=== PATIENT | female | born 1970 | race Caucasian/White ===

== ENCOUNTER 2017-05-17 16:11 | Outpatient (CLI) | payer BC, OTHER ==
--- NOTE | 2017-05-18 17:02 | Mammography Report ---
DIGITAL SCREENING MAMMOGRAM: 05/17/2017 CLINICAL INDICATION: A 47-year-old, for screening. COMPARISON: 03/2012. TECHNIQUE: Routine CC and MLO projections were obtained of the breasts. FINDINGS: The breasts demonstrate heterogeneously dense fibroglandular parenchyma bilaterally. Coarse and punctate, typically benign calcifications are present. No suspicious masses, clustered microcalcifications, or regions of architectural distortion are identified. IMPRESSION: BENIGN FINDINGS. RECOMMENDATION: ROUTINE ANNUAL SCREENING UNLESS OTHERWISE CLINICALLY INDICATED. BIRADS CATEGORY 2-BENIGN FINDINGS. STANDARD QUALIFYING STATEMENTS: 1. This examination was reviewed with the aid of Computer-Aided Detection (CAD). 2. A negative or benign imaging report should not delay biopsy if clinically suspicious findings are present. Consider surgical consultation if warranted. More than 5% of cancers are not identified by imaging. 3. Dense breasts may obscure an underlying neoplasm. TD: 05/18/2017 17:00
== END 2017-05-17 16:12 | disposition home or self-care (01) ==
LOC: DI 16:11
PROVIDERS: ATTEND Family Medicine
DX: Z12.31 Encounter for screening mammogram for malignant neoplasm of breast (principal)
CPT/HCPCS: 77067

== ENCOUNTER 2018-03-02 12:01 | Emergency (ER) | payer BC ==
[2018-03-02 12:07] VITALS: BP 132/73
--- NOTE | 2018-03-02 12:26 | ED Physician Documentation ---
History of Present Illness - Stated complaint Stated Complaint: COUGH/SINUS PX/EAR PX - Chief complaint Chief Complaint: Heent - Additonal information Additional information: hx from pt 47 f to ED with cough congestion R ear pain Review of Systems Constitutional: denies: Fever Ears: reports: Ear pain Nose: reports: Congestion Respiratory: reports: Cough GI: denies: Vomiting, Diarrhea : reports: Hysterectomy PD PAST MEDICAL HISTORY - Past Medical History GUM SPRAYER: Endometriosis - Past Surgical History Past Surgical History: Yes /GUM SPRAYER: Hysterectomy, Oophrectomy - Present Medications Home Medications: Ambulatory Orders Medication Instructions Recorded Confirmed Amoxicillin 500 mg PO Q8HR #30 capsule 03/02/18 - Allergies Allergies/Adverse Reactions: Allergies Allergy/AdvReac Type Severity Reaction Status Date / Time ondansetron HCl * Allergy Unknown Verified 03/02/18 12:07 [From Zofran (as hydrochloride)] - Social History Does the pt smoke?: Yes Smoking Status: Current every day smoker Does the pt drink ETOH?: No Does the pt have substance abuse?: No - Immunizations Immunizations are current?: Yes PD ED PE NORMAL - Vitals Vital signs reviewed: Yes - HEENT HEENT: Atraumatic, Moist mucous membranes, Pharynx benign. No: Ears normal (L TM red dull slight bulge) - Neck Neck: Supple, no meningeal sign - Cardiac Cardiac: RRR - Respiratory Respiratory: No respiratory distress, Clear bilaterally - Derm Derm: Normal color Results - Vitals Vitals: Vital Signs - 24 hr 03/02/18 12:05 Temperature 36.0 C L Heart Rate 84 Respiratory 16 Rate Blood Pressure 132/73 H O2 Saturation 96 Oxygen O2 Source Room air Departure - Departure Disposition: 01 Home, Self Care Clinical Impression: URI (upper respiratory infection) Qualifiers: URI type: unspecified viral URI Qualified Code(s): J06.9 - Acute upper respiratory infection, unspecified Otitis media Qualifiers: Otitis media type: suppurative Chronicity: acute Laterality: left Recurrence: not specified as recurrent Spontaneous tympanic membrane rupture: without spontaneous rupture Qualified Code(s): H66.002 - Acute suppurative otitis media without spontaneous rupture of ear drum, left ear Condition: Good Instructions: ED Otitis Media Acute Adult Prescriptions: Amoxicillin 500 mg PO Q8HR #30 capsule
== END 2018-03-02 12:32 | disposition home or self-care (01) ==
LOC: ED 12:01
DX: J06.9 Acute upper respiratory infection, unspecified (principal); H66.002 Acute suppurative otitis media without spontaneous rupture of ear drum, left ear; F17.200 Nicotine dependence, unspecified, uncomplicated
CPT/HCPCS: 99283

== ENCOUNTER 2018-07-14 08:00 | Outpatient (CLI) | payer BC ==
[2018-07-14 13:00] LABS: BASOPHILS % (AUTO) 0.7 %; EOSINOPHILS # (AUTO) 0.8 10^3/uL (0.0-0.7); EOSINOPHILS % (AUTO) 11.8 %; HGB - HEMOGLOBIN 13.3 g/dL (12.0-16.0); LYMPHOCYTES # (AUTO) 1.4 10^3/uL (1.5-3.5); LYMPHOCYTES % (AUTO) 21.4 %; MEAN CORPUSCULAR HEMOGLOBIN 28.6 pg (27.0-31.0); MEAN CORPUSCULAR HGB CONC 33.8 g/dL (32.0-36.0); MEAN CORPUSCULAR VOLUME 84.6 fL (81.0-99.0); MEAN PLATELET VOLUME 7.4 fL (7.9-10.8); MONOCYTES # (AUTO) 0.4 10^3/uL (0.0-1.0); MONOCYTES % (AUTO) 6.5 %; NEUTROPHILS # (AUTO) 3.9 10^3/uL (1.5-6.6); NEUTROPHILS % (AUTO) 59.6 %; PLT - PLATELET COUNT 262 10^3/uL (130-450); RED BLOOD COUNT 4.65 10^6/uL (4.20-5.40); RED CELL DISTRIBUTION WIDTH 13.8 % (12.0-15.0); WHITE BLOOD COUNT 6.5 x10^3/uL (4.8-10.8)
[2018-07-14 13:09] LABS: HB2 TOTAL 14.8 g/dL; HEMOGLOBIN A1C 0.61 g/dL; HEMOGLOBIN A1C % 5.9 % (4.6-6.2)
[2018-07-14 13:19] LABS: ALBUMIN 3.9 g/dL (3.2-5.5); ALBUMIN/GLOBULIN RATIO 1.1 (1.0-2.2); ALKALINE PHOSPHATASE 85 IU/L (42-121); ALT ALANINE AMINOTRANSFERASE 22 IU/L (10-60); AST ASPARTATE AMINOTRANSFERASE 23 IU/L (10-42); BILIRUBIN,TOTAL 0.5 mg/dL (0.2-1.0); BUN - BLOOD UREA NITROGEN 19 mg/dL (6-20); CALCIUM 9.5 mg/dL (8.5-10.3); CARBON DIOXIDE - CO2 26 mmol/L (21-32); CHLORIDE 104 mmol/L (101-111); CHOL/HDL RATIO 4.4 (<4.4); CHOLESTEROL 175 mg/dL; CREATININE 0.8 mg/dL (0.4-1.0); GFR - MDRD 77 (>89); GLUCOSE 121 mg/dL (70-100); HDL CHOLESTEROL 40 mg/dL; LDL CHOLESTEROL,CALCULATED 118 mg/dL; SODIUM 139 mmol/L (135-145); TOTAL PROTEIN 7.3 g/dL (6.7-8.2); VLDL CHOLESTEROL 17 mg/dL
== END 2018-07-14 23:59 | disposition home or self-care (01) ==
LOC: LAB.WCP 08:00
PROVIDERS: ATTEND Physician Assistant
DX: Z00.00 Encounter for general adult medical examination without abnormal findings (principal)
CPT/HCPCS: 36415; 80053; 80061; 83036; 83721; 84443; 85025

== ENCOUNTER 2018-08-14 08:00 | Outpatient (CLI) | payer BC ==
[2018-08-14 20:22] LABS: BILIRUBIN,URINE NEGATIVE (NEGATIVE); GLUCOSE, URINE (UA) NEGATIVE (NEGATIVE); KETONES,URINE (UA) TRACE mg/dL (NEGATIVE); LEUKOCYTE ESTERASE, URINE NEGATIVE (NEGATIVE); NITRITE,URINE NEGATIVE (NEGATIVE); OCCULT BLOOD,URINE NEGATIVE (NEGATIVE); PH,URINE 5.5 PH (5.0-7.5); PROTEIN,URINE TRACE mg/dL (NEGATIVE); UROBILINOGEN,URINE 0.2 (NORMAL) E.U./dL (NORMAL)
[2018-08-14 20:23] LABS: CLARITY,URINE CLEAR (CLEAR)
== END 2018-08-14 23:59 | disposition home or self-care (01) ==
LOC: LAB.R 08:00
PROVIDERS: ATTEND Physician Assistant
DX: N39.0 Urinary tract infection, site not specified (principal)
CPT/HCPCS: 81001; 81003; 87086

== ENCOUNTER 2018-10-24 13:56 | Outpatient (CLI) | payer BC ==
[2018-10-24 14:51] LABS: BASOPHILS % (AUTO) 0.5 %; EOSINOPHILS # (AUTO) 0.2 10^3/uL (0.0-0.7); EOSINOPHILS % (AUTO) 1.9 %; HGB - HEMOGLOBIN 12.4 g/dL (12.0-16.0); LYMPHOCYTES # (AUTO) 1.9 10^3/uL (1.5-3.5); LYMPHOCYTES % (AUTO) 24.8 %; MEAN CORPUSCULAR HEMOGLOBIN 29.5 pg (27.0-31.0); MEAN CORPUSCULAR HGB CONC 33.9 g/dL (32.0-36.0); MEAN CORPUSCULAR VOLUME 87.1 fL (81.0-99.0); MEAN PLATELET VOLUME 8.5 fL (7.9-10.8); MONOCYTES # (AUTO) 0.5 10^3/uL (0.0-1.0); MONOCYTES % (AUTO) 6.8 %; NEUTROPHILS # (AUTO) 5.1 10^3/uL (1.5-6.6); NEUTROPHILS % (AUTO) 65.6 %; PLT - PLATELET COUNT 248 10^3/uL (130-450); RED CELL DISTRIBUTION WIDTH 12.5 % (12.0-15.0); WHITE BLOOD COUNT 7.8 x10^3/uL (4.8-10.8)
[2018-10-24 15:07] LABS: ALBUMIN/GLOBULIN RATIO 1.3 (1.0-2.2); BILIRUBIN,TOTAL 0.4 mg/dL (0.2-1.0); CALCIUM 9.5 mg/dL (8.5-10.3); CREATININE 0.8 mg/dL (0.4-1.0); TOTAL PROTEIN 7.2 g/dL (6.7-8.2)
--- NOTE | 2018-10-24 15:49 | XRAY Report ---
Reason: ABDOMINAL PAIN IN FEMALE PATIENT Procedure Date: 10/24/2018 Accession Number: [id number] / [id number] Procedure: XR - Abdomen 2 View X-Ray CPT Code: 89741 FULL RESULT: EXAM: ABDOMEN RADIOGRAPHY. EXAM DATE: 10/24/2018 02:22 PM. CLINICAL HISTORY: Abdominal pain in female patient. COMPARISON: None. TECHNIQUE: 2 views. FINDINGS: Lung Bases: Unremarkable. Bowel Gas Pattern: Within normal limits. No dilated loops or abnormal fluid levels. Free Air: None. Other: Cholecystectomy clips are noted. IMPRESSION: Nonobstructive bowel gas pattern. RADIA
== END 2018-10-24 13:57 | disposition home or self-care (01) ==
LOC: DI 13:56
PROVIDERS: ATTEND Internal Medicine Gastroenterology
DX: R10.9 Unspecified abdominal pain (principal); R19.4 Change in bowel habit
CPT/HCPCS: 36415; 74019; 80053; 81599; 83690; 85025

== ENCOUNTER 2018-10-25 08:00 | Outpatient (CLI) | payer BC | END 2018-10-25 08:01 | disposition home or self-care (01) | LOC: LAB.R 08:00 | PROVIDERS: ATTEND Internal Medicine Gastroenterology | DX: R10.9 Unspecified abdominal pain (principal); R19.4 Change in bowel habit | CPT/HCPCS: 81599 ==

== ENCOUNTER 2019-08-07 08:00 | Outpatient (CLI) | payer OTHER, BC ==
[2019-08-07 13:28] LABS: ALBUMIN 3.8 g/dL (3.2-5.5); BILIRUBIN,TOTAL 0.6 mg/dL (0.2-1.0); CALCIUM 9.1 mg/dL (8.5-10.3); CREATININE 0.8 mg/dL (0.4-1.0); MAGNESIUM 2.1 mg/dL (1.7-2.8); TOTAL PROTEIN 7.5 g/dL (6.7-8.2)
[2019-08-07 13:41] LABS: BASOPHILS % (AUTO) 0.4 %; EOSINOPHILS # (AUTO) 0.2 10^3/uL (0.0-0.7); EOSINOPHILS % (AUTO) 2.1 %; HGB - HEMOGLOBIN 12.2 g/dL (12.0-16.0); LYMPHOCYTES # (AUTO) 1.4 10^3/uL (1.5-3.5); LYMPHOCYTES % (AUTO) 19.7 %; MEAN CORPUSCULAR HEMOGLOBIN 27.5 pg (27.0-31.0); MEAN CORPUSCULAR VOLUME 85.8 fL (81.0-99.0); MEAN PLATELET VOLUME 9.1 fL (7.9-10.8); MONOCYTES # (AUTO) 0.5 10^3/uL (0.0-1.0); MONOCYTES % (AUTO) 7.5 %; NEUTROPHILS # (AUTO) 4.9 10^3/uL (1.5-6.6); PLT - PLATELET COUNT 277 10^3/uL (130-450); RED BLOOD COUNT 4.44 10^6/uL (4.20-5.40); RED CELL DISTRIBUTION WIDTH 13.2 % (12.0-15.0); WHITE BLOOD COUNT 7.1 x10^3/uL (4.8-10.8)
[2019-08-07 13:48] LABS: HB2 TOTAL 12.3 g/dL; HEMOGLOBIN A1C 0.49 g/dL; HEMOGLOBIN A1C % 5.8 % (4.6-6.2)
== END 2019-08-07 23:59 | disposition home or self-care (01) ==
LOC: LAB.WCP 08:00
PROVIDERS: ATTEND Physician Assistant
DX: R00.2 Palpitations (principal)
CPT/HCPCS: 36415; 80053; 83036; 83735; 84443; 85025

== ENCOUNTER 2019-08-30 07:43 | Outpatient (CLI) | payer OTHER, BC | END 2019-08-30 07:44 | disposition home or self-care (01) | LOC: DI 07:43 | PROVIDERS: ATTEND Physician Assistant | DX: R00.2 Palpitations (principal); I51.7 Cardiomegaly | CPT/HCPCS: 93306 ==

== ENCOUNTER 2019-12-05 16:43 | Outpatient (CLI) | payer OTHER, BC ==
--- NOTE | 2019-12-06 17:30 | XRAY Report ---
PROCEDURE: Knee 2 View RT INDICATIONS: KNEE PAIN, RIGHT TECHNIQUE: 2 views of the right knee(s) were acquired. COMPARISON: None. FINDINGS: Bones: No fractures or dislocations. No suspicious bony lesions. Soft tissues: No joint effusion. Calcific tendinitis at the lateral collateral ligament versus small osteophyte. IMPRESSION: Calcific tendinitis versus small osteophyte as above. No visualized fractures. Reviewed by: Sandra Campos MD on 12/06/2019 5:29 PM PDT Approved by: Sandra Campos MD on 12/06/2019 5:29 PM PDT Station ID: [id number]
== END 2019-12-05 16:44 | disposition home or self-care (01) ==
LOC: DI 16:43
PROVIDERS: ATTEND Physician Assistant
DX: R93.6 Abnormal findings on diagnostic imaging of limbs (principal)

== ENCOUNTER 2019-12-11 08:38 | Outpatient (CLI) | payer OTHER, BC ==
[2019-12-11 09:51] VITALS: BP 132/62
--- NOTE | 2019-12-11 09:51 | SLEEP CARE CONSULTATION ---
Information from patient questionnaire entered by Perlita Robertson. I have reviewed and concur with the information entered by Perlita Robertson. This document represents the service I personally performed and the decisions made by me, Karina Joy ARNP. History of Present Illness Service Date and Time: 12/11/2019 0838 Reason for Visit: New patient Chief Complaint: reports: Unrefreshed sleep, Observed pauses in breathing, Other (heart issues) Date of Onset: unknown Usual bedtime: 6961-4314 Time it takes to fall asleep: 10-15 minutes Snores at night: Yes Observed to quit breathing while asleep: Yes ( has seen) Sleeps alone due to snoring: No Number of times waking at night: 2-3 Reasons for waking at night: reports: Bathroom. denies: Choking, Snoring, Gasping for air Toss, Turn, or Twitch while sleeping: No Recalls having dreams: Yes Usually gets out of bed at: [id number] Feels refreshed in the morning: No Morning headache: Yes (daily, last couple hours, takes ibuprofen for ARREDONDO and other pains) Sleepy or fatigued during the day: Yes Ever fallen asleep while driving: No Takes day naps: Yes (3 times a week, sets alarm for 20-30 mins) Dreams during day naps: No Prior sleep studies: No Additional HPI information: I had the pleasure of seeing RAMEZ HODGE today regarding the possibility of her having a sleep disorder. Her current complaints are unrefreshed sleep, obser mone pauses in breathing during sleep and heart issues. She has been working with her precast molder because she has "weakened heart" luciano and recently found a new heart arrhythmia. They did an overnight oximetry and found some desaturations of her oxygen levels. She was then referred here for testing through her PCP. She does snore with some observed pauses in breathing by her . She has been trying to lose weight and increasing her exercising to 20 minutes daily. - Parasomnia Symptoms Ever been unable to move upon waking from sleep: No Walks in sleep: No Talks in sleep: No Ever acted out dreams in sleep: No Ever felt weak in the knees when startled or emotional: No Bothered by creepy, crawly, restless sensations in legs: Yes (nightly, weighted blanket helps) Problems with memory or concentration: No Subjective Initial [place] Sleepiness Scale score: 9 (in 2020) Past Medical History Past Medical History: reports: Hypertension, Diabetes, Arthritis, Arrythmia (un- named arrhythmia), Anxiety, Depression, GERD, Other (irregular beats (new found heart issue)). 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 Patient is and lives in [place]. Have you smoked in the past 12 months: No Cigarettes per day (20/pack): 10 Quit date: 02/2018 Alcohol use: Yes Alcohol amount and frequency: holidays: , Caffeine use: Yes Caffeine amount and frequency: 1 8oz daily Family History Family history of sleep disordered breathing: Yes Family Hx Sleep Apnea: Mother: Snoring, Sleep apnea - Untreated Allergies and Home Medications Drug allergies reviewed: Yes (zofran) Home medication list reviewed: Yes Allergy and home medication list: Metformin setraline claritin omeprazole pre-probiotics multi-vitamins Review of Systems Weight gain over past 5 years: 60 Weight loss over past 5 years: 60 Cardiovascular: reports: high blood pressure, palpitations, irregular heart rate or pulse. denies: chest pain, leg or foot swelling Respiratory: denies: shortness of breath, chronic cough Gastrointestinal: denies: heartburn, difficulty swallowing Urinary: denies: incontinence, impotence Neurological: denies: headaches, seizure, head trauma, speech dysfunction, gait or balance problems Psychiatric: reports: anxiety, depression. denies: Attention Deficit Hyperactivity, mood disorder, claustrophobia Ear/Nose/Throat: reports: sinus problems, wisdom teeth removed. denies: nasal congestion, nose bleeds, dry mouth/throat, hoarseness, injury to nose, tonsillectomy Endocrine: denies: thyroid disease Musculoskeletal: reports: joint pain (right knee), mobility problems Immunologic: reports: allergies to food or environment (pollen) Physical Exam Blood Pressure: 132/62 Cuff size: large Heart Rate: 54 O2 Saturation: 98 Height: 5 ft 4 in Weight: 295 lb Body Mass Index: 50.6 BMI Classification: Morbidly Obese HEENT: No craniofacial malformation Nostrils: patent to airflow Turbinates: swollen Septum: midline Mouth and throat: narrow oropharynx Soft palate: normal Hard palate: arched Uvula: normal Uvula visualization: 25% Mallampati Class III Tongue: normal in size Tonsils: 1+ Chin and jaw: normal size and position Neck: normal w/o lymphadenopathy or thyromegaly Heart: regular rate and rhythm Lungs: clear bilaterally Impression and Plan 1. Suspected Obstructive Sleep Apnea-Hypopnea Syndrome, as suggested by a history of loud and irregular snoring, observed cessation of breath while asleep, morning headache, frequent awakening during the night, unrefreshed sleep, and excessive daytime sleepiness. Narrow oropharynx and obesity are common predisposing factors for obstructive sleep apnea-hypopnea syndrome. Patient has a history of diabetes, pre-hypertension and new heart arrhythmia. I recommend proceeding to polysomnography to confirm the diagnosis and to assess severity. If the patient has significant sleep disordered breathing, a manual CPAP titration study will also be performed to find the optimal treatment pressure. I informed the patient of what the sleep studies involve and after some discussion, obtained agreement to proceed. The pathophysiology of obstructive sleep apnea-hypopnea syndrome was discussed with the patient and health risks of cardiovascular and cerebrovascular disease if not treated. AASM brochure for obstructive sleep apnea-hypopnea syndrome given and reviewed. Risks of drowsy driving discussed in detail and patient advised to avoid long distance driving and to mold puller at the first sign of drowsiness. Patient agreed to plan. * Schedule polysomnography +- manual CPAP titration study. * Avoid long distance driving or driving when feeling sleepy. * Avoid alcohol, sedative and muscle relaxant around bedtime. * Continue to lose weight. * Review instructions provided by trained office staff on how to prepare for the sleep study. * Return for follow-up after sleep study completed. Visit Type: In Office Time Spent with Patient (minutes): 31 Provider Statement: I spent 100% of the Face to Face Visit with the patient with greater than 50% spent counseling the patient and coordination of care.
== END 2019-12-11 08:39 | disposition home or self-care (01) ==
LOC: SC 08:38
PROVIDERS: ATTEND Nurse Practitioner Family
DX: G47.8 Other sleep disorders (principal); R06.81 Apnea, not elsewhere classified; G47.10 Hypersomnia, unspecified; R53.83 Other fatigue; R06.83 Snoring; I49.9 Cardiac arrhythmia, unspecified; E11.9 Type 2 diabetes mellitus without complications; I10 Essential (primary) hypertension; E66.01 Morbid (severe) obesity due to excess calories; Z68.43 Body mass index [BMI] 50.0-59.9, adult
CPT/HCPCS: 99204; 99212

== ENCOUNTER 2020-01-06 20:35 | Outpatient (CLI) | payer OTHER, BC | END 2020-01-06 20:36 | disposition home or self-care (01) | LOC: SC 20:35 | PROVIDERS: ATTEND Nurse Practitioner Family | DX: G47.33 Obstructive sleep apnea (adult) (pediatric) (principal); G47.61 Periodic limb movement disorder; E66.9 Obesity, unspecified; Z68.43 Body mass index [BMI] 50.0-59.9, adult | CPT/HCPCS: 95810 ==

== ENCOUNTER 2020-01-16 07:40 | Outpatient (CLI) | payer OTHER, BC ==
[2020-01-16 13:30] LABS: HEMOGLOBIN A1c% 5.6 % (4.27-6.07)
== END 2020-01-16 23:59 | disposition home or self-care (01) ==
LOC: LAB.WCP 07:40
PROVIDERS: ATTEND Physician Assistant
DX: R73.03 Prediabetes (principal)
CPT/HCPCS: 36415; 83036

== ENCOUNTER 2020-01-16 16:28 | Outpatient (CLI) | payer OTHER, BC ==
--- NOTE | 2020-01-16 17:13 | SLEEP CARE CONSULTATION ---
Information from patient questionnaire entered by Shon Shearer. I have reviewed and concur with the information entered by Shon Shearer. This document represents the service I personally performed and the decisions made by me, Karina Joy ARNP. History of Present Illness Service Date and Time: 01/16/2020 162 Initial [place] Sleepiness Scale score: 9 (in 2020) Current [place] Sleepiness Scale score: 8 Additional HPI information: RAMEZ HODGE returns for follow up and results of the recently performed polysomnography. I explained the pathophysiology behind obstructive sleep apnea. We then spent quite a bit of time discussing different treatment options. For mild obstructive sleep apnea, surgery and oral appliance are alternatives to nasal CPAP therapy but in moderate or severe cases, nasal CPAP is the most effective a nd reliable treatment. Because apnea is primarily in supine position, then positional management therapy could be effective. Methods discussed such as positioning with pillows, using a T-shirt with tennis balls in the back, and shown commercial products that have a pillow format on back to prevent supine sleep. I reviewed the impact of weight changes on sleep apnea and strongly recommended losing weight. After some discussion, the patient opted to go with the nasal CPAP therapy. Nasal autoCPAP set at [id number] will be ordered with rationale explained. A manual titration study will be ordered if unable to find optimal pressure with office adjustments. I explained how CPAP machine works with sample devices Respironics Dreamstation and ResQD Vision [id number] and what to expect when using the machine. Using CPAP every night in order to get used to it was emphasized. Patient advised to put CPAP mask on before getting into bed so as not to fall asleep without CPAP. To assist acclimation to CPAP use, it could also be used for a short time during day while reading or watching TV. The patient was instructed to call the CPAP supplier to discuss any mechanical problem that may occur. If the mask given is uncomfortable or is difficult to keep on through the night even with adjustment, contact the CPAP supplier as many will replace with another mask style if notified before 30 days. If snoring or perceives is not getting enough air or too much air from the machine, notify this office. [facility] patient education PAP tips reviewed and given to patient. Patient counseled not drink alcohol less than 4 hours before bedtime as it can increase snoring and apnea. Patient was cautioned about risks of drowsy driving until sleepiness symptoms resolve. Sleep Study - Results Type of Sleep Study: Polysomnography Prior sleep studies: No Polysomnography/Home Sleep Study results: awakenings after the sleep onset. Except for mild sleep fragmentation, the sleep architecture was normal. Respiratory monitoring showed mild obstructive sleep apnea-hypopnea (AHI = 6.3) associated with frequent arousals, oxyhemoglobin desaturation and mild hypoxia (tristen oxygen saturation of 83%). The patient slept almost exclusively in non-supine positions (supine AHI = 0.0; non-supine = 6.67). Snore was light to loud in intensity. There was mild periodic leg movement of sleep not contributing to the sleep fragmentation. Cardiac rhythm was normal sinus rhythm without significant arrhythmia. No abnormal behavior (parasomnia) observed during the [facility] Allergies and Home Medications Drug allergies reviewed: Yes (ondansetron) Home medication list reviewed: Yes (amoxicillin after wisdom tooth taken out, done now) Review of Systems Review of systems same as previous: No (wisdom tooth removed) Physical Exam Heart Rate: 60 O2 Saturation: 97 Height: 5 ft 4 in Weight: 280 lb Body Mass Index: 48.0 BMI Classification: Morbidly Obese Impression and Plan 1. Obstructive Sleep Apnea-Hypopnea Syndrome, mild, with lowest oxygen sat uration of 83%. Obviously this is the cause of the patients symptoms of unrefreshed sleep, and excessive daytime sleepiness. Positive pressure therapy could benefit her hypertension, diabetes, heart arrhythmia, anxiety, depression and GERD. As mentioned above, the patient will be started on nasal autoCPAP therapy with pressure set at 4-15 cmH2O. A manual titration study will be completed if unable to find optimal treatment pressure with office adjustments. Compliance guidelines also reviewed. A copy of compliance guidelines will be given for reference at check out. 2. Periodic limb movement, mild, that did not fragment patients sleep. Periodic limb movement of sleep (PLMS) is characterized by episodes of repetitive limb movements that occur during sleep and usually involve the lower limbs. The etiology is unknown but can be associated with restless leg syndrome (RLS), neuropathy, spinal cord diseases, kidney disease, rheumatological disorders, narcolepsy, obstructive sleep apnea, and REM sleep behavior disorder. Other factors that can increase PLMS and/or RLS are heredity and iron deficiency as reflected by a low serum ferritin level below 50 to 75mcg / L. Several medications can precipitate or aggravate PLMS such as selective serotonin re- uptake inhibitor antidepressants, tricyclic antidepressants, lithium, and dopamine receptor antagonists with the exception of bupropion. Caffeine can also aggravate PLMS and should be avoided. Sleep hygiene methods can also improve sleep as well as lifestyle changes such as regular exercise. Patient was advised that no treatment is needed at this time. If symptoms increase, then further evaluation is indicated. * Nasal auto CPAP therapy, pressure at 4-15 cm H2O. * Attempt to lose weight. * Avoid alcohol consumption near bedtime. * Avoid supine sleep until using CPAP. * The patient is again cautioned about driving until sleepiness completely resolves. * Return one month after CPAP obtained. I will assess response to therapy and compliance at that time. Counseling Topics: Weight loss health impact Visit Type: In Office Time Spent with Patient (minutes): 21 Provider Statement: I spent 100% of the Face to Face Visit with the patient with greater than 50% spent counseling the patient and coordination of care.
== END 2020-01-16 16:29 | disposition home or self-care (01) ==
LOC: SC 16:28
PROVIDERS: ATTEND Nurse Practitioner Family
DX: G47.33 Obstructive sleep apnea (adult) (pediatric) (principal); E66.01 Morbid (severe) obesity due to excess calories; Z68.42 Body mass index [BMI] 45.0-49.9, adult; G47.61 Periodic limb movement disorder
CPT/HCPCS: 99212; 99213

== ENCOUNTER 2020-01-31 16:50 | Outpatient (CLI) | payer OTHER, BC ==
--- NOTE | 2020-02-01 10:26 | Ultrasound Report ---
PROCEDURE: Ext Limited Non Vascular INDICATIONS: RT KNEE PAIN, POSTERIOR KNEE PAIN IN POPITEAL MAXIMILIANO TECHNIQUE: Real-time scanning was performed of the right popliteal fossa, with image documentation. COMPARISON: None. FINDINGS: There is a flat, long, simple appearing fluid collection in the popliteal fossa measuring roughly 7.1 x 0.9 x 3.8 cm. There is no associated vascularity. The adjacent vessels appear grossly p atent. IMPRESSION: 1. 7.1 cm simple appearing Pelaez's cyst. If this continues to be symptomatic, ultrasound-guided drain age could be considered. Reviewed by: Petra Chávez MD on 02/01/2020 10:25 AM PDT Approved by: Petra Chávez MD on 02/01/2020 10:25 AM PDT Station ID: [id number]
== END 2020-01-31 16:51 | disposition home or self-care (01) ==
LOC: DI 16:50
PROVIDERS: ATTEND Physician Assistant
DX: M25.561 Pain in right knee (principal); M71.21 Synovial cyst of popliteal space [Baker], right knee
CPT/HCPCS: 76882

== ENCOUNTER 2020-02-29 14:50 | Outpatient (CLI) | payer BC, OTHER ==
--- NOTE | 2020-02-29 17:26 | XRAY Report ---
PROCEDURE: Knee Standing RT INDICATIONS: INTERNAL DERRANGEMENT OF RT KNEE COMPARISON: None. FINDINGS: Bones: AP views standing of both knees, oblique view of the right knee, and sunrise view of the right patella were performed. There is no fracture or dislocation. There is mild medial joint space narrow ing of the right knee. A well-corticated ossification is seen adjacent to the lateral condyle of the right knee. Soft tissues: No knee joint effusions. No suspicious soft tissue calcification. IMPRESSION: Medial joint space narrowing of the right knee. No other significant abnormality. MRI wo uld be helpful to further evaluate internal derangement. Reviewed by: Viktor Patterson on 02/29/2020 5:25 PM PST Approved by: Viktor Patterson on 02/29/2020 5:25 PM [facility] Station ID: [id number]
== END 2020-02-29 23:59 | disposition home or self-care (01) ==
LOC: DI.N 14:50
PROVIDERS: ATTEND Orthopaedic Surgery
DX: M23.91 Unspecified internal derangement of right knee (principal)

== ENCOUNTER 2020-04-09 09:00 | Outpatient (CLI) | payer OTHER, BC ==
--- NOTE | 2020-04-09 09:48 | SLEEP CARE CONSULTATION ---
Information from patient questionnaire entered by Jillian Hernandez. I have reviewed and concur with the information entered by Jillian Hernandez. This document represents the service I personally performed and the decisions made by , Karina Joy ARNP. History of Present Illness Service Date and Time: 04/09/2020 0900 Previous diagnosis: Mild, Obstructive Sleep Apnea-Hypopnea Syndrome AHI: 6.3 (in 2019) Reason for follow up: first compliance Equipment type: CPAP Equipment obtained from: [employer] Mask style: Nasal (Airfit N30i - small wide) Backup mask available: Yes (other mask) Last cushion change: 1 month or so Prior sleep studies: Yes Year and Where: 2019 - [facility] Type of Sleep Study: Polysomnography HPI additional information: RAMEZ HODGE was diagnosed to have mild, AHI 5.6, obstructive sleep apnea- hypopnea syndrome and returned today for CPAP therapy first compliance follow- up. CPAP Compliance Data - Data Reviewed with Patient Average duration of nightly device use: 7 hours 5 mins Compliance rate %: 90 Current pressure setting (cmH2O): 4-15 (median 5.2, average 6.9, max 7.1) Humidity settin Heated hose settin Average residual AHI: 0.6 Average large leak: 2 mins 42 secs Subjective Missed days of use due to: reports: family emergency, mask issues Patient concerns: reports: aerophagia, mask discomfort (not getting a good fit and her skin is turning red with rash), air blowing in eyes (headgeat slipping off back of head and dislodging mask), mask leak noise, dry mouth, nose, throat (nose dryness). denies: condensation in mask/hose, nasal congestion, epistaxis, other Observed to snore while using device: No Current pressure setting perceived as: comfortable (occasionally feel to high after going to bathroom, she is using ramp now) On therapy, patient: reports: sleeping better, awakening more refreshed, being more awake and alert during the day, more rested overall. denies: drowsiness while driving Initial [place] Sleepiness Scale score: 9 (in 2019) Current [place] Sleepiness Scale score: 6 Allergies and Home Medications Drug allergies reviewed: Yes (Zofan) Home medication list reviewed: Yes (no changes) Review of Systems Review of systems same as previous: Yes (no changes) Physical Exam Heart Rate: 67 O2 Saturation: 98 Height: 5 ft 4 in Weight: 247 lb Body Mass Index: 42.4 BMI Classification: Morbidly Obese Impression and Plan 1. Obstructive Sleep Apnea-Hypopnea Syndrome, mild, with good treatment compliance and great apnea control. On CPAP therapy, the patient has better sleep quality and is more rested overall. Patient has had some bloating and burping that is improving. To reduce symptoms of aerophagia, the CPAP pressure will be reduced to 4-6 cmH2O. Patient advised to contact me if this does not reduce symptoms or if pressure change uncomfortable. She has found the headgear slipping off the back of her head and causing air leaking in to her eyes. She has also had some skin irritation/rash. Mask leaks can be reduced by washing mask daily and changing mask cushions more frequently to improve mask seal and comfort. Additionally, mask leaks predominately from when patient sleeps on their side can be reduced by using a CPAP pillow. A CPAP pillow sample was shown. This and other styes can be purchased online. She saw a walk-in clinic provider who gave her a topical antibiotic for her rash and it is improving. I advised her to try finding a mask barrier to go between mask and skin. She will talk to her DME for recommendations. She would like to try a different mask type, looked over samples in office and she thinks the N30 nasal cushion mask would fit better and stay on her head. She may need to get arms on the headgear she has to keep her mask from slipping off. She has also had some dryness in her nose. Her heated hose is set at 5 and humidity at 4. I advised her to reduce her heated hose to 3 to reduce dryness. She voiced understanding and agreement with plan of care. Patient's apnea severity and rationale for treatment to reduce apnea, improve sleep quality and reduce cardiovascular and cerebrovascular events was reviewed. I also reviewed the benefit of consistent device use of CPAP for hypertension, arrhythmia, diabetes, gastric reflux, and depression/anxiety. * Change auto CPAP pressure to 4-6 cmH2O * Headgear arms * Notify me if snoring with mask or feeling that the pressure is too much or too little * Attempt to lose weight * Call this office if any problems using CPAP * Return for follow up in 1-2 months, or sooner if concerns arise Counseling Topics: Spare mask, Weight loss health impact Visit Type: In Office Time Spent with Patient (minutes): 31 Provider Statement: I spent 100% of the Face to Face Visit with the patient with greater than 50% spent counseling the patient and coordination of care.
== END 2020-04-09 09:01 | disposition home or self-care (01) ==
LOC: SC 09:00
PROVIDERS: ATTEND Nurse Practitioner Family
DX: G47.33 Obstructive sleep apnea (adult) (pediatric) (principal); E66.01 Morbid (severe) obesity due to excess calories; Z68.41 Body mass index [BMI] 40.0-44.9, adult
CPT/HCPCS: 99212; 99213

== ENCOUNTER 2020-06-10 15:42 | Outpatient (CLI) | payer OTHER, BC ==
--- NOTE | 2020-06-10 16:23 | SLEEP CARE CONSULTATION ---
Information from patient questionnaire entered by Shon Shearer. I have reviewed and concur with the information entered by Shon Shearer. This document represents the service I personally performed and the decisions made by , Karina Joy ARNP. History of Present Illness Service Date and Time: 06/10/2020 1542 Previous diagnosis: Mild, Obstructive Sleep Apnea-Hypopnea Syndrome AHI: 6.3 (in 2019) Reason for follow up: other (2-month followup - pressure change) Equipment type: CPAP Equipment obtained from: [employer] (getting supplies as needed) Mask style: Nasal (Airfit N30i - small wide) Backup mask available: Yes (other cushion) Prior sleep studies: Yes Year and Where: 2019 - [facility] Type of Sleep Study: Polysomnography HPI additional information: RAMEZ HODGE was diagnosed to have mild, AHI 6.3, obstructive sleep apnea- hypopnea syndrome and returned today for CPAP therapy two month pressure change follow-up. CPAP Compliance Data - Data Reviewed with Patient Average duration of nightly device use: 6 h 15 min Compliance rate %: 88.3 Current pressure setting (cmH2O): 4-6 Humidity settin Heated hose settin Average residual AHI: 0.2 Central apnea: 0.0 Obstructive apnea: 0.1 Average large leak: 48 sec Subjective Missed days of use due to: reports: family emergency, mask issues Patient concerns: reports: mask leak noise (just needs adjustment), epistaxis. denies: aerophagia, mask discomfort, air blowing in eyes, condensation in mask/hose, nasal congestion, dry mouth, nose, throat, other Observed to snore while using device: No Current pressure setting perceived as: comfortable On therapy, patient: reports: sleeping better, awakening more refreshed, being more awake and alert during the day, more rested overall, other (not having headache in the morning). denies: drowsiness while driving Initial [place] Sleepiness Scale score: 9 (in 2019) Current [place] Sleepiness Scale score: 4 Allergies and Home Medications Home medication list reviewed: Yes (no changes) Review of Systems Review of systems same as previous: Yes (no changes) Physical Exam Heart Rate: 81 O2 Saturation: 98 Height: 5 ft 4 in Weight: 238 lb Body Mass Index: 40.8 BMI Classification: Morbidly Obese Impression and Plan 1. Obstructive Sleep Apnea-Hypopnea Syndrome, mild, with good treatment compliance and good apnea control. On CPAP therapy, the patient has better sleep quality and is more rested overall. She states her aerophagia has resolved with the pressure change. She is sleeping better with the CPAP and not having headaches in the morning anymore. She has had some mild bloody noses that she thinks may be due to the season, her nose has also felt a little dry. Her humidity is set at 5 and heated hose at 3. Nasal dryness can be reduced with increasing the CPAP humidity as shown on sample device and the heated hose can be increased if condensation. In addition, I gave the patient a few samples of Robbie Ease nasal cream to be used 4 times a day for 7-10 days and then as needed. Patient voiced understanding. Patient's apnea severity and rationale for treatment to reduce apnea, improve sleep quality and reduce cardiovascular and cerebrovascular events was reviewed. I also reviewed the benefit of consistent device use of CPAP for hypertension, arrhythmia, diabetes, gastric reflux, and depression/anxiety. * Continue autoCPAP pressure at 4-6 cmH2O * Notify me if snoring with mask or feeling that the pressure is too much or too little * Attempt to lose weight * Call this office if any problems using CPAP * Return for follow up in 3 months, or sooner if concerns arise Counseling Topics: Spare mask, Weight loss health impact Visit Type: In Office Time Spent with Patient (minutes): 17 Provider Statement: I spent 100% of the Face to Face Visit with the patient with greater than 50% spent counseling the patient and coordination of care.
== END 2020-06-10 15:43 | disposition home or self-care (01) ==
LOC: SC 15:42
PROVIDERS: ATTEND Nurse Practitioner Family
DX: G47.33 Obstructive sleep apnea (adult) (pediatric) (principal); E66.01 Morbid (severe) obesity due to excess calories; Z68.41 Body mass index [BMI] 40.0-44.9, adult
CPT/HCPCS: 99212

== ENCOUNTER 2020-07-15 09:08 | Outpatient (CLI) | payer BC, OTHER ==
[2020-07-15 11:54] LABS: BASOPHILS # (AUTO) 0.1 10^3/uL (0.0-0.1); BASOPHILS % (AUTO) 0.8 %; EOSINOPHILS # (AUTO) 0.4 10^3/uL (0.0-0.7); EOSINOPHILS % (AUTO) 4.6 %; HCT - HEMATOCRIT 42.8 % (37.0-47.0); HGB - HEMOGLOBIN 13.4 g/dL (12.0-16.0); LYMPHOCYTES # (AUTO) 1.8 10^3/uL (1.5-3.5); LYMPHOCYTES % (AUTO) 22.3 %; MEAN CORPUSCULAR HEMOGLOBIN 28.1 pg (27.0-31.0); MEAN CORPUSCULAR HGB CONC 31.3 g/dL (32.0-36.0); MEAN CORPUSCULAR VOLUME 89.7 fL (81.0-99.0); MEAN PLATELET VOLUME 9.1 fL (7.9-10.8); MONOCYTES # (AUTO) 0.6 10^3/uL (0.0-1.0); NEUTROPHILS # (AUTO) 5.1 10^3/uL (1.5-6.6); NEUTROPHILS % (AUTO) 64.9 %; PLT - PLATELET COUNT 298 10^3/uL (130-450); RED BLOOD COUNT 4.77 10^6/uL (4.20-5.40); RED CELL DISTRIBUTION WIDTH 12.5 % (12.0-15.0); WHITE BLOOD COUNT 7.9 x10^3/uL (4.8-10.8)
[2020-07-15 12:36] LABS: ALBUMIN 4.5 g/dL (3.2-5.5); ALBUMIN/GLOBULIN RATIO 1.4 (1.0-2.2); ALKALINE PHOSPHATASE 82 IU/L (42-121); ALT ALANINE AMINOTRANSFERASE 19 IU/L (10-60); AST ASPARTATE AMINOTRANSFERASE 19 IU/L (10-42); BILIRUBIN,TOTAL 0.4 mg/dL (0.2-1.0); BILIRUBIN,URINE NEGATIVE (NEGATIVE); BUN - BLOOD UREA NITROGEN 18 mg/dL (6-20); CALCIUM 10.1 mg/dL (8.5-10.3); CARBON DIOXIDE - CO2 28 mmol/L (21-32); CHLORIDE 103 mmol/L (101-111); CHOL/HDL RATIO 3.7 (<4.4); CHOLESTEROL 219 mg/dL; CREATININE 0.8 mg/dL (0.4-1.0); GFR - MDRD 77 (>89); GLUCOSE 107 mg/dL (70-100); GLUCOSE, URINE (UA) NEGATIVE (NEGATIVE); HDL CHOLESTEROL 59 mg/dL; KETONES,URINE (UA) NEGATIVE (NEGATIVE); LDL CHOLESTEROL,CALCULATED 135 mg/dL; LDL/HDL RATIO 2.3 (<4.4); LEUKOCYTE ESTERASE, URINE NEGATIVE (NEGATIVE); NITRITE,URINE NEGATIVE (NEGATIVE); OCCULT BLOOD,URINE NEGATIVE (NEGATIVE); PH,URINE 5.5 PH (5.0-7.5); POTASSIUM 4.6 mmol/L (3.5-5.0); PROTEIN,URINE NEGATIVE (NEGATIVE); SODIUM 140 mmol/L (135-145); TOTAL PROTEIN 7.8 g/dL (6.7-8.2); TRIGLYCERIDES 127 mg/dL; UROBILINOGEN,URINE 0.2 (NORMAL) E.U./dL (NORMAL); VLDL CHOLESTEROL 25 mg/dL
[2020-07-15 12:38] LABS: CLARITY,URINE CLEAR (CLEAR)
[2020-07-15 12:49] LABS: ESTIMATED AVERAGE GLUCOSE 111 mg/dL (70-100); HEMOGLOBIN A1c% 5.5 % (4.27-6.07)
[2020-07-15 12:51] LABS: BACTERIA,URINE Rare /HPF (None Seen); RBC,URINE 0-5 /HPF (0-5); SQUAMOUS EPITHELIAL CELL,UR FEW Squamous (<= Few); WBC,URINE 0-3 /HPF (0-5)
== END 2020-07-15 23:59 | disposition home or self-care (01) ==
LOC: LAB.WCP 09:08
PROVIDERS: ATTEND Family Medicine
DX: Z00.00 Encounter for general adult medical examination without abnormal findings (principal); R31.9 Hematuria, unspecified; R73.03 Prediabetes
CPT/HCPCS: 36415; 80053; 80061; 81001; 83036; 83721; 85025; 87086

== ENCOUNTER 2020-09-02 09:21 | Outpatient (CLI) | payer OTHER ==
--- NOTE | 2020-09-04 07:04 | Mammography Report ---
BILATERAL DIGITAL SCREENING MAMMOGRAM 3D/2D: 09/02/2020 CLINICAL: Routine screening. Comparison mammograms 05/17/2017, 03/14/2012. The tissue of both breasts is heterogeneously dense. This may lower the sensitivity of mammography. No significant masses, calcifications, or other findings are seen in either breast. IMPRESSION: NEGATIVE There is no mammographic evidence of malignancy. A 1 year screening mammogram is recommended. This exam was interpreted at Station ID: [id number]. NOTE: For mammograms, a report in lay terms will be sent to the patient. Approximately 15% of breast malignancies will not be visualized mammographically. In the management of a palpable breast mass, a negative mammogram must not discourage biopsy of a clinically suspicious lesion. Electronically Signed By: Paulino Duffy M.D. slc/:09/02/2020 11:35:06 ACR BI-RADS Category 1: Negative 3341F PARENCHYMAL PATTERN: (D) - The breast(s) demonstrate(s) heterogeneously dense fibroglandular varun bernard. BI-RADS CATEGORY: (1) - 1 RECOMMENDATION: (ANNUAL) - Recommend routine annual screening mammography. [id number] 1 year screening LATERALITY: (B)
== END 2020-09-02 09:22 | disposition home or self-care (01) ==
LOC: DI 09:21
DX: Z12.31 Encounter for screening mammogram for malignant neoplasm of breast (principal)

== ENCOUNTER 2023-02-16 15:13 | Outpatient (CLI) | payer OTHER ==
--- NOTE | 2023-02-16 15:46 | Sleep Patient Instructions ---
Sleep Center Visit Summary - Patient Visit Information Reason for Visit: Annual Visit - Patient Instructions Additional Instructions: You will continue with CPAP therapy with pressure set at 5-8 cmH2O. A supply prescription will be updated with your DME. We encourage you to continue to try to lose weight. Please follow up with the sleep care office in 1 year. - Clinic Information Contact: [facility] [address] [place] [email or web address] T: [phone]
--- NOTE | 2023-02-16 15:49 | SLEEP CARE CONSULTATION ---
Information from patient questionnaire entered by Amy Bartholomew. I have reviewed and concur with the information entered by Amy Bartholomew. This document represents the service I personally performed and the decisions made by me, Karina Joy ARNP. History of Present Illness Service Date and Time: 02/16/2023 1513 Previous diagnosis: Mild, Obstructive Sleep Apnea-Hypopnea Syndrome AHI: 6.3 (in 2019) Reason for follow up: annual (LAST SEEN 06/2020) Equipment type: CPAP (G[employer]ON DREAMSTATION 2) Equipment obtained from: [employer] (getting supplies as needed) Mask style: Nasal (Airfit N20, medium) Mask brand: Resmed Backup mask available: Yes (old mask) Last cushion change: this morning Prior sleep studies: Yes Year and Where: 2019 - [facility] Type of Sleep Study: Polysomnography HPI additional information: ARMEZ HODGE was diagnosed to have mild, AHI 6.3, obstructive sleep apnea- hypopnea syndrome and returned today for CPAP therapy annual follow-up. Sleep Study - Results Type of Sleep Study: Polysomnography Prior sleep studies: Yes Year and Where: 2019 - [facility] CPAP Compliance Data - Data Reviewed with Patient Average duration of nightly device use: 6 HRS 2 MINS 21 SECS Compliance rate %: 83.8 (02/05/2022-02/04/23; 329/365 days used) Current pressure setting (cmH2O): 5-8 Average residual AHI: 0.6 Average large leak: 0 secs Subjective Missed days of use due to: reports: illness Patient concerns: reports: condensation in mask/hose (with change of weather). denies: aerophagia, mask discomfort, air blowing in eyes, mask leak noise, nasal congestion, dry mouth, nose, throat, epistaxis Observed to snore while using device: Yes (occasional) Current pressure setting perceived as: comfortable On therapy, patient: reports: sleeping better, awakening more refreshed, being more awake and alert during the day, more rested overall. denies: drowsiness while driving Initial [place] Sleepiness Scale score: 9 (in 2019) Current [place] Sleepiness Scale score: 6 (02/16/23) Allergies and Home Medications Known drug allergies: Yes (as listed) Drug allergies reviewed: Yes Home medication list reviewed: Yes (no changes) Allergy and home medication list: Allergies ondansetron HCl * [From Zofran (as hydrochloride)] Allergy (Verified 02/15/23 15:57) Unknown Review of Systems Review of systems same as previous: Yes (NO CHANGE) Physical Exam Vital signs obtained and entered by: AMY Smith MA Blood Pressure: 119/75 (RIGHT) Cuff size: wrist Heart Rate: 76 O2 Saturation: 97 Height: 5 ft 4 in Weight: 304 lb 3.2 oz Weight change since last visit: 66 lb Body Mass Index: 52.2 BMI Classification: Morbidly Obese Impression and Plan 1. Obstructive Sleep Apnea-Hypopnea Syndrome, mild, with good treatment compliance and good apnea control. On CPAP therapy, the patient has better sleep quality and is more rested overall. Patient states she is got some condensation since the weather changed recently. She says with her old machine she had a heated hose but she does not have it with this new DreamStation 2. She does know how to adjust the humidity and I encouraged her to do so and then order heated hose for her machine. I will be updating her DME supply prescription. Patient has significant improvement of their sleep apnea and is satisfied with current CPAP therapy. I will follow up with her next year. Patient's apnea severity and rationale for treatment to reduce apnea, improve sleep quality and reduce cardiovascular and cerebrovascular events was reviewed. I also reviewed the benefit of consistent device use of CPAP for hypertension, arrhythmia, diabetes, gastric reflux, depression and anxiety. 2. Obesity, unspecified. Currently patients BMI is 52.2. Obesity increases the risk of apnea, CPAP pressure requirements and overall health risks especially cardiovascular and diabetes. Thus patient is advised to lose weight. * Continue auto CPAP pressure at 5-8 cmH2O * Update supply prescription * Notify me if snoring with mask or feeling that the pressure is too much or too little * Attempt to lose weight * Call this office if any problems using CPAP * Return for follow up in 1 year, or sooner if concerns arise Counseling Topics: Spare mask, Weight loss health impact Prescriptions: Device supplies Follow up with Sleep Care in: 1 year Visit Type: In Office Time Spent with Patient (minutes): 20 Provider Statement: I spent 100% of the Face to Face Visit with the patient with greater than 50% spent counseling the patient and coordination of care.
[2023-02-16 16:09] VITALS: BP 119/75; O2SAT 97
== END 2023-02-16 15:14 | disposition home or self-care (01) ==
LOC: SC 15:13
PROVIDERS: ATTEND Nurse Practitioner Family
DX: G47.33 Obstructive sleep apnea (adult) (pediatric) (principal); E66.01 Morbid (severe) obesity due to excess calories; Z68.43 Body mass index [BMI] 50.0-59.9, adult
CPT/HCPCS: 99212